=== PATIENT | female | born 1950 | race Caucasian/White ===

== ENCOUNTER 2017-08-23 08:44 | Emergency (ER) | payer MEDICARE, MEDICAID, SELFPAY ==
[2017-08-23 08:45] VITALS: BP 129/81; PULSE 109; RESP 16; TEMP 36.4; O2SAT 95; BMI 30.2
[2017-08-23 08:55] LABS: Bedside Glucose 171 mg/dL (70-110)
--- NOTE | 2017-08-23 08:56 | EKG12_ITS ---
Test Reason : STROKE Blood Pressure : / mmHG Vent. Rate : 101 BPM Atrial Rate : 101 BPM P-R Int : 164 ms QRS Dur : 078 ms QT Int : 362 ms P-R-T Axes : 049 034 074 degrees QTc Int : 469 ms Sinus tachycardia Otherwise normal ECG Confirmed by ELVIN PRAJAPATI ([id number]), research editor BETHANY MOSES ([id number] on 08/25/2017 2:24:03 PM Referred By: BOOGIE Confirmed By:ELVIN PRAJAPATI
--- NOTE | 2017-08-23 08:56 | RAD_ITS ---
STUDY: X-RAY CHEST REASON FOR EXAM: Female, 67 years old. NEURO SYMPTOMS; H/O CVA ASTHMA TECHNIQUE: Single AP portable view of the chest. COMPARISON: July 20, 2011 FINDINGS: There is bibasilar mild atelectasis. There is no demonstrated pleural abnormality. Heart is smaller with borderline cardiomegaly. Normal mediastinum and timothy. Normal visualized pulmonary arteries. There is atherosclerotic tortuosity of the aortic arch and descending thoracic aorta. Normal visualized thoracic spine. Normal visualized ribs, clavicles, and shoulders. There is no demonstrated abnormality of the visualized soft tissue structures of the upper abdomen. RAD/Chest 1 View (Portable) IMPRESSION: There is bibasilar mild atelectasis. Heart is smaller with borderline cardiomegaly. Electronically Signed: Viv Beck MD at 10:37 EDT , Service support ,
[2017-08-23 09:19] LABS: Absolute Lymphocyte Count 1.13 X10^3/ul (0.83-4.51); Absolute Neutrophil Count 6.2 X10^3/uL (2.0-7.7); Basophil# 0.01 X10^3/uL; Basophil% 0.1 % (0-1); Eosinophil# 0.03 X10^3/uL; Eosinophils% 0.4 % (0-5); Hematocrit 43.5 % (37-47); Hemoglobin 14.4 g/dl (12.0-15.0); Lymphocyte # 1.13 X10^3/ul (4.0); Lymphocyte % 14.6 % (19-41); Mean Corp Hgb Conc 33.1 g/gl (32-36); Mean Corpuscular Hgb 31.5 pg (27.0-32.0); Mean Corpuscular Volume 95.2 fL (81-99); Mean Platelet Vol. 9.7 fl (6.2-12.0); Monocyte# 0.39 X10^3/uL; Neutrophil # 6.18 X10^3/uL (2.7-7.7); Neutrophil % 79.8 % (47-70); POSITIVE COUNT NO; POSITIVE DIFFERENTIAL NO; POSITIVE MORPHOLOGY NO; Platelet Count 171 K/mm3 (150-450); RBC Distribution Width SD 44.1 fl (35.1-43.9); Red Blood Count 4.57 M/mm3 (4.2-5.4); White Blood Count 7.8 K/mm3 (4.4-11.0)
[2017-08-23 09:22] LABS: Partial Thromboplast Time 26.2 Seconds (24.1-36.2); Prothrombin Time (Protime)PT. 12.9 SECONDS (11.7-14.9)
[2017-08-23 09:24] LABS: ALB/GLOB Ratio 0.9 RATIO (0.9-2.4); AST(SGOT) 13 U/L (15-37); Alanine Aminotransfer ALT/SGPT 39 U/L (13-56); Albumin, Serum 3.4 g/dL (3.2-5.0); Alkaline Phosphatase 84 U/L (45-117); Anion Gap 8 (5-15); BUN 12 mg/dL (7-18); BUN/Creat Ratio 15.4 RATIO (10-20); Calcium,Total 8.6 mg/dL (8.5-10.1); Chloride 103 mmol/L (98-107); Creatinine, Serum 0.78 mg/dL (0.55-1.02); EST Glomerular Filtration Rate 79 mL/min (>60); Est Glom Filt Rate - Afr Amer 95 mL/min (>60); Estimated Creatinine Clearance 51.81 ml/min; Globulin 3.9 g/dL (2.2-4.2); Glucose 171 mg/dL (74-106); Potassium 3.9 mmol/L (3.5-5.1); Protein, Total 7.3 g/dL (6.4-8.2); Sodium Level 140 mmol/L (136-145)
--- NOTE | 2017-08-23 09:37 | ED.RN ---
lactic acid 2.0. dr rico
--- NOTE | 2017-08-23 09:39 | ED.VISSUMM ---
- ER Visit Summary Date of Service: 08/23/17 Chief Complaint: Weakness and cough History of Present Illness: The patient is a 67 F presenting for the shelter for evaluation secondary to weakness and cough. Apparently the patient is admitted to a shelter secondary to prior history of schizophrenia. Patient was noted to not go to breakfast this morning, and when staff saw her they reported that she potentially was dragging her right foot. When questioned, the patient states that she does not feel that the right side is weak, and she has a prior history of stroke with weakness to the right side. Patient however complains that she has been having significant cough shortness of breath. She also endorses that she has been having some nausea and vomiting. She denies any presence of fevers. She states the cough is nonproductive. Patient denies any visual changes. She does have underlying documented speech difficulty. Physical Examination: Vital signs are notable for heart rate of 109. Well-nourished female no acute distress. Moist mucous membranes. No JVD. Heart was regular and tachycardic with a 2 out of 6 systolic murmur noted. Lung sounds showed evidence of rhonchi in the left lung anand. Abdomen was soft and nontender. Peripheral pulses 2+?4. Skin was normal color. NIH stroke scale showed no lateralizing weakness, but did show the patient to have some mild dysarthria which is baseline, therefore NIH stroke scale is 1. Test Results: EKG shows sinus tachycardia with a rate of 100 and [address] segments normal T waves no evidence of acute ischemia or arrhythmia. CBC unremarkable, lactic acid mildly elevated at 2. Chest x-ray shows atelectasis. CT brain shows a spontaneous intraparenchymal hemorrhage in the left thalamic region without any evidence of midline shift Emergency Department Course and Treatment: Patient presented secondary to a cough and some mild weakness. Patient's workup is noted as above, and ended up showing a intraparenchymal hemorrhage. Multiple repeat evaluation shows the patient to continue to have normal mental status. I do believe the patient requires transfer to a higher level of care with neurosurgical capabilities. Patient's air brake mechanic recommended transfer to [facility]. Patient does not have hypertension and does not require aggressive blood pressure management at this point. The area of the bleed is not concerning for aneurysmal hemorrhage. Patient will be transferred to [facility] for further monitoring and treatment. Disposition: Transfer Impression: 1. Left-sided thalamic intraparenchymal hemorrhage Critical care time 45 minutes This note was generated with [employer] dictation software. It may contain incorrect words, spelling, and punctuation that were not noted in review of the chart prior to signing ED Disposition - Plan for ED Patient: Chief Complaint: Neuro S/Sx Referrals: Dex Emery MD [Primary Care Provider] -
--- NOTE | 2017-08-23 09:42 | ED.DCSUM_ITS ---
- ER Visit Summary Date of Service: 08/23/17 Chief Complaint: Weakness and cough History of Present Illness: The patient is a 67 F [facility] to [facility] and cough. [facility] to prior history of schizophrenia. Patient was noted to not go to breakfast this morning, and when staff saw her they reported that she potentially was dragging her right foot. When questioned , the patient states that she does not feel that the right side is weak, and she has a prior history of stroke with weakness to the right side. Patient however complains that she has been having significant cough shortness of breath. She also endorses that she has been having some nausea and vomiting. She denies any presence of fevers. She states the cough is nonproductive. Patient denies any visual changes. She does have underlying documented speech difficulty. Physical Examination: Vital signs are notable for heart rate of 109. Well- nourished female no acute distress. Moist mucous membranes. No JVD. Heart was regular and tachycardic with a 2 out of 6 systolic murmur noted. Lung sounds showed evidence of rhonchi in the left lung anand. Abdomen was soft and nontender. Peripheral pulses 2+?4. Skin was normal color. NIH stroke scale showed no lateralizing weakness, but did show the patient to have some mild dysarthria which is baseline, therefore NIH stroke scale is 1. Test Results: EKG shows sinus tachycardia with a rate of 100 and [address] segments normal T waves no evidence of acute ischemia or arrhythmia. CBC unremarkable, lactic acid mildly elevated at 2. Chest x-ray shows atelectasis. CT brain shows a spontaneous intraparenchymal hemorrhage in the left thalamic region without any evidence of midline shift Emergency Department Course and Treatment: Patient presented secondary to a cough and some mild weakness. Patient's workup is noted as above, and ended up showing a intraparenchymal hemorrhage. Multiple repeat evaluation shows the patient to continue to have normal mental status. I do believe the patient requires transfer to a higher level of care with neurosurgical capabilities. Patient's bicycle ii assembler recommended transfer to [facility]. Patient does not have hypertension and does not require aggressive blood pressure management at this point. The area of the bleed is not concerning for aneurysmal hemorrhage. Patient will be transferred to [facility] for further monitoring and treatment. Disposition: Transfer Impression: 1. Left-sided thalamic intraparenchymal hemorrhage Critical care time 45 minutes This note was generated with [employer] dictation software. It may contain incorrect words, spelling, and punctuation that were not noted in review of the chart prior to signing ED Disposition - Plan for ED Patient: Chief Complaint: Neuro S/Sx Referrals: Dex Emery MD [Primary Care Provider] -
--- NOTE | 2017-08-23 09:45 | CT_ITS ---
STUDY: CT BRAIN WITHOUT CONTRAST REASON FOR EXAM: Female, 67 years old. WEAKNESS RT ARM, RT FOOT DRAGGING STARTED TODAY, LAST SEEN NORMAL BY CONSTRUCTION ADMINISTRATIVE ASSISTANT YESTERDAY RADIATION DOSAGE (If Supplied By Facility): CTDIvol = ( 44.99 ) mGy, DLP = ( 745.49 ) mGycm TECHNIQUE: Transaxial CT imaging of the brain was performed without administration of intravenous contrast material. Individualized dose optimization techniques were used for this CT. COMPARISON: July 20, 2011 CT head report only FINDINGS: Normal soft tissue structures. Normal calvarium. Normal size ventricles and extra-axial spaces for the patient's age. There are areas of decreased attenuation within the white matter tracts of the supratentorial brain, consistent with microvascular disease changes. There is a 1.4 cm acute hematoma of the left thalamus. No mass effect or midline shift. There are calcifications of the bilateral basal ganglia. Normal brainstem. Normal cerebellum. Normal visualized paranasal sinuses. CT/Brain/Head without Contrast IMPRESSION: There is a 1.4 cm acute hematoma of the left thalamus. This could represent an acute hemorrhagic infarct. N.B. : The above information has been verbally conveyed by Viv Beck MD to Nate Ponce, Referring Physician, on 08/23/2017 10:07:11 (ET). Electronically Signed: Viv Beck MD at 10:08 EDT , Service support , N.B. : The above information has been verbally conveyed by Viv Beck MD to Nate Ponce, Referring Physician, on 08/23/2017 10:07:11 (ET).
[2017-08-23 09:56] VITALS: BP 128/85; PULSE 101; RESP 16; O2SAT 96
[2017-08-23] MEDS: 0.9% Normal Saline 1,000 ML 999 ML IV (09:57)
[2017-08-23 11:44] VITALS: BP 145/85; PULSE 104; O2SAT 96
[2017-08-23 12:03] VITALS: BP 136/87; PULSE 101; O2SAT 96
--- NOTE | 2017-08-23 12:35 | ED.RN ---
report given to Oralia ROBERSON. transfer expected to arrive in 1 hr
[2017-08-23 13:03] LABS: Reflex Lactate? Y
== END 2017-08-23 13:32 | disposition short-term general hospital (02) ==
PROVIDERS: Emergency Provider Emergency Medicine; Family Provider Family Medicine; PCP Family Medicine
DX: I61.8 Other nontraumatic intracerebral hemorrhage (principal); G83.11 Monoplegia of lower limb affecting right dominant side; I69.14 Monoplegia of lower limb following nontraumatic intracerebral hemorrhage; K21.9 Gastro-esophageal reflux disease without esophagitis; F20.9 Schizophrenia, unspecified; Z79.82 Long term (current) use of aspirin; Z79.899 Other long term (current) drug therapy
CPT/HCPCS: 70450; 71045; 80053; 82962; 83605; 85025; 85610; 85730; 87040; 93005; 96360; 99285; J7030; A4216

== ENCOUNTER → 2019-01-12 05:00 | Outpatient (REF) | payer MEDICARE, MEDICAID, SELFPAY ==
[2019-01-12 07:48] LABS: Hemoglobin 14.3 g/dL (12.0-15.0); Mean Corp Hgb Conc 32.5 g/dL (32-36); Mean Corpuscular Hgb 31.6 pg (27.0-32.0); Mean Corpuscular Volume 97.3 fL (81-99); Mean Platelet Vol. 10.3 fl (6.2-12.0); Platelet Count 182 K/mm3 (150-450); RBC Distribution Width CV 12.9 % (11.6-14.6); RBC Distribution Width SD 46.4 fl (35.1-43.9); Red Blood Count 4.52 M/mm3 (4.2-5.4); White Blood Count 6.4 K/mm3 (4.4-11.0)
[2019-01-12 08:20] LABS: Anion Gap 8 (5-15); BUN 13 mg/dL (7-18); BUN/Creat Ratio 20.2 RATIO (10-20); Calcium,Total 8.7 mg/dL (8.5-10.1); Chloride 109 mmol/L (98-107); Creatinine, Serum 0.64 mg/dL (0.55-1.02); EST Glomerular Filtration Rate 98 mL/min (>60); Est Glom Filt Rate - Afr Amer 118 mL/min (>60); Glucose 102 mg/dL (74-106); Potassium 4.3 mmol/L (3.5-5.1); Sodium Level 143 mmol/L (136-145)
== END ==
LOC: OLS.WCC 05:00
PROVIDERS: Visit Provider Family Medicine
DX: Z79.899 Other long term (current) drug therapy (principal)
CPT/HCPCS: 36415; 80048; 85027

== ENCOUNTER → 2019-05-10 12:35 | Outpatient (CLI) | payer MEDICARE, MEDICAID, SELFPAY ==
--- NOTE | 2019-05-10 12:39 | RAD_ITS ---
STUDY: SWALLOWING STUDY REASON FOR EXAM: Female, 69 years old. DYSPHAGIA, 152 SEC FLUORO, 14.32 MGY, 2501 IMAGES TECHNIQUE: The examination was performed with Speech Pathology in attendance. Under fluoroscopic observation, the patient ingested thin barium, thick barium, barium pudding, and barium coated cracker. FLUOROSCOPY TIME: 3:52 minutes/seconds RADIOLOGIST INVOLVEMENT: Radiologist was present and providing direct supervision. COMPARISON: October 06, 2016. FINDINGS: Fluoroscopy services provided for clinical procedure. Please refer to operating physician''s procedure note for additional detail. RAD/Swallowing Function w/Video IMPRESSION: Fluoroscopy services provided for clinical procedure. Please refer to operating physician''s procedure note for additional detail. The swallow study findings were discussed with the patient by the speech pathologist at the conclusion of the examination. Please see speech pathology report for more information and recommendations. Electronically Signed: Phillip Leonardo MD at 7:39 EST , Service support ,
--- NOTE | 2019-05-10 13:00 | SP.MBSS_ITS ---
PRIMARY / SECONDARY DIAGNOSIS: Personal history of Transient Ischemic Attack (TIA) Z86.73 / Dysphagia REFERRING PHYSICIAN: Dr. EMY Silver CURRENT DIET: Mechanical Soft/Thin liquid w/ all sips via Provale 10cc cup, close supervision, verbal cues for slow rate, small bites, liquid wash DENTITION: present MENTAL STATUS: Limited ability to follow commands for assessment of strategies under fluoroscopy RESPIRATORY STATUS: oxygenating on room air w/ no report of respiratory symptoms from PATIENT TRANSPORTER accompanying the patient to this study PREVIOUS MODIFIED BARIUM SWALLOW STUDY: * Completed 07/25/2014 by Kalee Forbes M.A., CCC-DINING ROOM SERVER: severe oropharyngeal and pharyngeal dysphagia; silent aspiration of thin and nectar thickened liquids, DNT honey thickened liquids, aspiration w/ pudding (cough, not effective to eject). Use of a chin tuck was effective to completely eliminate penetration/aspiration; regular texture/thin liquid diet recommended w/ use of a chin tuck posture during deglutition; outpatient tx recommended targeting pitch jumps, effortful swallow, tongue pose, and oral sucking exercises * Completed 10/06/2016 by Haritha Blackman M.A., CCC-DINING ROOM SERVER: moderate oropharyngeal dysphagia; mechanical soft textures/thin liquids recommended w/ small bites, small sips, slow rate of intake, chin tuck posture when swallows w/ all bites/sips, distant supervision w/ verbal cues recommended to ensure consistent and accurate [place] of compensatory strategies w/ recommendation for continued skilled ST intervention targeting dysphagia REASON FOR REFERRAL: Further assessment of swallow function under fluoroscopy recommended d/t impulsivity and frequent coughing w/ PO intake. PATIENT TRANSPORTER accompanying the patient reports the patient to utilize a rapid rate of intake w/ need for 1:1 supervision & verbal cues to take small bites/sips and eat slowly. MEDICAL HISTORY: Asthma; Arthritis; CVA; Dementia; Mild Cognitive Impairment; Paranoid Schizophrenia; Major Depressive Disorder, recurrent, severe w/ psychotic symptoms; Gastroesophageal Reflux Disease without Esophagitis; Oropharyngeal Dysphagia; STUDY FINDINGS: Patient participated in a Modified Barium Swallow (MBS) study on 05/10/2019. Dr. Gallagher was the radiologist present for this evaluation. This study was recorded in the lateral view and images were sent to PACs for storage. The following consistencies were presented to this patient for analysis of oropharyngeal swallow function: thin liquid, nectar thickened liquid, pudding & ? of a Mimi Doone Shortbread Cookie coated in barium. Results of the MBS are as follows: PENETRATION / ASPIRATION SCALE ([place]): 1 = does not enter airway 2 = enters airway/above vocal folds/ejected 3 = enters airway/above vocal folds/not ejected 4 = enters airway/contacts vocal folds/ejected 5 = enters airway/contacts vocal folds/not ejected 6 = enters airway/below vocal folds/ejected 7 = enters airway/below vocal folds/not ejected despite effort 8 = enters airway/below vocal folds/no effort PENETRATION / ASPIRATION SCALE (SCORE): 1. Thin liquid via Provale 10cc cup: 7 * Aspiration d/t poor oral control w/ bolus spillage into the pharynx w/ immediate penetration/aspiration before swallow onset; strong cough response to aspirate 2. Thin liquid via Provale 10cc cup: 1 3. Thin liquid via Provale 10cc cup: 1 4. Thin liquid via Provale 10cc cup: swallow not captured under fluoroscopy d/t Radiologist/ rotational moulding operator error 5. Thin liquid via sip from regular cup: 4 6. [place] thickened liquid via sip from regular cup: 1 7. [place] thickened liquid via sip from regular cup: 1 8. Puddin 9. Puddin 10. Cookie: 1 11. Thin liquid via Provale 10cc cup: 1 w/ initial swallow; 3 w/ penetration of pharyngeal residue post deglutition 12. Thin liquid via Provale 10cc cup: 2 13. Thin liquid via Provale 10cc cup: 1 14. Thin liquid via Provale 10cc cup: 2 15. Thin liquid via sip from regular cup: 6 16. Thin liquid via sip from regular cup: 5 IMPRESSION ORAL PHASE CHARACTERIZED BY: * LABIAL SEAL: no labial escape * TONGUE CONTROL DURING BOLUS MANIPULATION: posterior escape of greater than half of bolus * BOLUS PREPARATION / MASTICATION: disorganized chewing/mashing with solid pieces of bolus unchewed * BOLUS TRANSPORT / LINGUAL MOTION: repetitive/disorganized tongue motion * ORAL RESIDUE: residue collection on oral structures (tongue base) PHARYNGEAL PHASE CHARACTERIZED BY: * INITIATION OF PHARYNGEAL SWALLOW: bolus head in pyriforms at first hyoid excursion * SOFT PALATE ELEVATION: no bolus between soft palate and pharyngeal wall * LARYNGEAL ELEVATION: minimal superior movement of thyroid cartilage/minimal approximation of arytenoids cartilage to epiglottic petiole * ANTERIOR HYOID EXCURSION: partial anterior movement * EPIGLOTTIC MOVEMENT: partial epiglottic inversion * LARYNGEAL VESTIBULE CLOSURE AT HEIGHT OF SWALLOW: incomplete laryngeal vestibule closure with narrow column of air/contrast in laryngeal vestibule * PHARYNGEAL STRIPPING WAVE: pharyngeal stripping wave present / diminished * PHARYNGOESOPHAGEAL SEGMENT OPENING: partial distension and partial duration; partial obstruction of flow * TONGUE BASE RETRACTION: narrow column of contrast between tongue base and posterior pharyngeal wall * PHARYNGEAL RESIDUE: collection of residue within or on pharyngeal structures ESOPHAGEAL PHASE CHARACTERIZED BY: * ESOPHAGEAL BOLUS CLEARANCE IN THE UPRIGHT POSITION: esophageal retention with retrograde flow through PES into pharynx EFFECTS OF TREATMENT STRATEGIES ATTEMPTED: * Chin tuck posture = unable to follow commands to execute * 3 second prep (oral hold prior to swallow onset) = unable to follow command to execute * Cued expectoration = delayed cough which was ineffective to clear laryngeal vestibule penetration * Double swallow = moderately effective in reducing pharyngeal residue post deglutition * Reduced bolus size = effective INTERPRETATION OF RESULTS Patient presents with moderate oropharyngeal dysphagia (R13.12). The oral phase is primarily marked by a mild mastication inefficiency and severely impaired lingual control resulting in poor oral bolus containment w/ spillage into the pharynx prior to swallow onset. Disorganized oral prep noted w/ repetitive lingual motion utilized to facilitate A-P bolus transit. Oral phase swallow onset delay (2-3 seconds in length) resulting in all liquids spilling and pooling w/in the pyriform sinuses prior to swallow onset. The pharyngeal phase is primarily marked by delayed pharyngeal swallow onset timing w/ liquids pooling in the pyriform sinuses prior to swallow onset w/ liquids penetrating into the laryngeal vestibule from the pyriforms, especially of note w/ larger volume thin liquid boluses. Reduced closure of the airway during deglutition attributed to reduced hyolaryngeal excursion. Reduced pharyngeal motility attributed to reduced tongue base retraction and reduced posterior pharyngeal stripping wave action resulting in pharyngeal retention of contrast post deglutition within the valleculae (mild) and pyriforms (moderate) contributing to penetration of pharyngeal residue after the initial swallow. The esophageal phase is marked by esophageal retention with retrograde flow through PES into pharynx. Retrograde flow did not contribute to laryngeal vestibule penetration/aspiration during this study, but places the patient at increased risk for aspiration, especially w/ poor meal hygiene. Compensatory postures/strategies were trialed under fluoroscopy, but the patient was unable to comprehend and follow instruction w/ no attempt to execute any strategies recommended. During the previous study completed by this DINING ROOM SERVER, the patient was able to follow some commands for execution of strategies, suggesting a functional cognitive decline since prior study which is likely contributing to exacerbation of existing oropharyngeal dysphagia. Overt aspiration occurred 1x only w/ an immediate and strong cough response to aspiration. Aspiration occurred w/ very first thin liquid bolus provided via Provale cup d/t lack of oral containment w/ liquid immediately spilling into the laryngeal vestibule/trachea. Although oral control remained impaired t/o remainder of the study, no additional aspiration was evident. RECOMMENDATIONS * DIET RECOMMENDATIONS: mechanical soft textures/thin liquids * COMPENSATORY STRATEGIES RECOMMENDED: Direct 1:1 supervision w/ all PO intake, use of Provale 10cc cup for small sips, one sip at a time, cue for double swallow as able to reduce pharyngeal residue retention, seated upright at 90 degrees during PO intake, remain upright for 30-60 minutes post meal (GERD precaution recommended d/t visible retrograde bolus flow through PES into pharynx during MBS), medications while w/ purees. * NEED FOR SKILLED SPEECH-LANGUAGE INTERVENTION TARGETING DYSPHAGIA: This patient requires intensive skilled speech-language intervention targeting continued diet texture management w/ training and implementation of recommended compensatory strategies. The patient demonstrated significant difficulty following all direction presented verbally and visually, one step at a time, with suspected limited ability to complete oropharyngeal swallow therapy to improve oral control and swallow onset timing. As the patient does demonstrate strong overt coughing in response to aspiration and caregivers reports that there have been no respiratory status changes, it is reasonable to believe that the patient?s cough is effective to eject aspirate and sufficiently protect the airway. Recommend to continue w/ thin liquid intake, small sips, one sip at a time w/ Provale cup, despite coughing, as this will yield the highest quality of life and intake. If changes in pulmonary status are evident, liquid consistency modification should be considered. * ADDITIONAL COMMENTS/RECOMMENDATIONS: Results and recommendations were discussed with the patient and accompanying PATIENT TRANSPORTER immediately following MBS completion, with the patient verbalizing agreement with all recommendations and education provided, although comprehension is suspected to be limited w/ ongoing reinforcement likely to be required. IMAGE COUNT: [id number] Haritha Blackman M.A., [facility]-DINING ROOM SERVER [phone]
== END ==
PROVIDERS: Family Provider Family Medicine; PCP Family Medicine; Referring Provider Family Medicine; Visit Provider Family Medicine
DX: Z86.73 Personal history of transient ischemic attack (TIA), and cerebral infarction without residual deficits (principal)
CPT/HCPCS: 74230; 92611

== ENCOUNTER → 2019-07-12 05:00 | Outpatient (REF) | payer MEDICARE, MEDICAID, SELFPAY ==
[2019-07-12 09:16] LABS: Hematocrit 44.6 % (37-47); Hemoglobin 14.2 g/dL (12.0-15.0); Mean Corp Hgb Conc 31.8 g/dL (32-36); Mean Corpuscular Hgb 30.5 pg (27.0-32.0); Mean Corpuscular Volume 95.7 fL (81-99); Mean Platelet Vol. 10.4 fl (6.2-12.0); Platelet Count 206 K/mm3 (150-450); RBC Distribution Width CV 12.9 % (11.6-14.6); RBC Distribution Width SD 45.1 fl (35.1-43.9); Red Blood Count 4.66 M/mm3 (4.2-5.4); White Blood Count 6.1 K/mm3 (4.4-11.0)
[2019-07-12 09:33] LABS: Anion Gap 4 (5-15); BUN 9 mg/dL (7-18); BUN/Creat Ratio 12.7 RATIO (10-20); Calcium,Total 8.8 mg/dL (8.5-10.1); Chloride 104 mmol/L (98-107); Cholesterol 215 mg/dL (200); Creatinine, Serum 0.71 mg/dL (0.55-1.02); EST Glomerular Filtration Rate 87 mL/min (>60); Est Glom Filt Rate - Afr Amer 106 mL/min (>60); Glucose 124 mg/dL (74-106); High Density Lipoprotein 55 mg/dL; Sodium Level 139 mmol/L (136-145); Triglycerides 183 mg/dL; Very Low Density Lipoprotein 37 mg/dL (5-40)
== END ==
LOC: OLS.WCC 05:00
PROVIDERS: PCP Family Medicine; Visit Provider Family Medicine
DX: E55.9 Vitamin D deficiency, unspecified (principal); Z79.899 Other long term (current) drug therapy
CPT/HCPCS: 36415; 80048; 80061; 82306; 85027

== ENCOUNTER → 2020-01-02 14:05 | Outpatient (REF) | payer MEDICARE, MEDICAID, SELFPAY | LOC: OLS.WCC 14:05 | PROVIDERS: PCP Family Medicine; Referring Provider Family Medicine; Visit Provider Family Medicine | DX: Z20.828 Contact with and (suspected) exposure to other viral communicable diseases (principal) | CPT/HCPCS: 87635; U0003 ==

== ENCOUNTER → 2020-02-11 08:00 | Outpatient (REF) | payer MEDICARE, MEDICAID, SELFPAY ==
[2020-02-11 12:06] LABS: Cholesterol 209 mg/dL (200); High Density Lipoprotein 52 mg/dL; Triglycerides 183 mg/dL; Very Low Density Lipoprotein 37 mg/dL (5-40)
[2020-02-13 08:30] LABS: Vitamin D,25 Hydroxy 20.1 ng/mL
== END ==
LOC: OLS.WCC 08:00
PROVIDERS: PCP Family Medicine; Referring Provider Family Medicine; Visit Provider Family Medicine
DX: R53.83 Other fatigue (principal); E55.9 Vitamin D deficiency, unspecified; Z79.899 Other long term (current) drug therapy
CPT/HCPCS: 36415; 80061; 82306

== ENCOUNTER → 2020-08-12 06:29 | Outpatient (REF) | payer MEDICARE, MEDICAID, SELFPAY ==
[2020-08-12 08:14] LABS: Hemoglobin 13.8 g/dL (12.0-15.0); Mean Corp Hgb Conc 32.1 g/dL (32-36); Mean Corpuscular Hgb 31.2 pg (27.0-32.0); Mean Corpuscular Volume 97.3 fL (81-99); Mean Platelet Vol. 10.2 fl (6.2-12.0); Platelet Count 203 K/mm3 (150-450); RBC Distribution Width CV 12.4 % (11.6-14.6); RBC Distribution Width SD 44.7 fl (35.1-43.9); Red Blood Count 4.42 M/mm3 (4.2-5.4); White Blood Count 5.9 K/mm3 (4.4-11.0)
[2020-08-12 08:24] LABS: Anion Gap 4 (5-15); BUN 9 mg/dL (7-18); BUN/Creat Ratio 13.6 RATIO (10-20); Calcium,Total 8.7 mg/dL (8.5-10.1); Chloride 106 mmol/L (98-107); Creatinine, Serum 0.66 mg/dL (0.55-1.02); EST Glomerular Filtration Rate 94 mL/min (>60); Est Glom Filt Rate - Afr Amer 113 mL/min (>60); Glucose 101 mg/dL (74-106); Sodium Level 141 mmol/L (136-145)
[2020-08-12 08:41] LABS: Vitamin D,25 Hydroxy 26.8 ng/mL
== END ==
LOC: OLS.WCC 06:29
PROVIDERS: PCP Family Medicine; Referring Provider Family Medicine; Visit Provider Family Medicine
DX: Z79.899 Other long term (current) drug therapy (principal); E55.9 Vitamin D deficiency, unspecified
CPT/HCPCS: 36415; 80048; 82306; 85027

== ENCOUNTER → 2021-02-10 05:00 | Outpatient (REF) | payer MEDICARE, MEDICAID, SELFPAY ==
[2021-02-10 10:22] LABS: Hematocrit 45.1 % (37-47); Hemoglobin 14.3 g/dL (12.0-15.0); Mean Corp Hgb Conc 31.7 g/dL (32-36); Mean Corpuscular Hgb 30.8 pg (27.0-32.0); Mean Platelet Vol. 10.4 fl (6.2-12.0); Platelet Count 202 K/mm3 (150-450); RBC Distribution Width CV 12.7 % (11.6-14.6); RBC Distribution Width SD 45.4 fl (35.1-43.9); Red Blood Count 4.65 M/mm3 (4.2-5.4); White Blood Count 6.7 K/mm3 (4.4-11.0)
[2021-02-10 10:34] LABS: Vitamin D,25 Hydroxy 36.1 ng/mL
[2021-02-10 10:36] LABS: Anion Gap 7 (5-15); BUN 16 mg/dL (7-18); Calcium,Total 8.9 mg/dL (8.5-10.1); Chloride 106 mmol/L (98-107); Cholesterol 217 mg/dL (200); Creatinine, Serum 0.76 mg/dL (0.55-1.02); EST Glomerular Filtration Rate 80 mL/min (>60); Est Glom Filt Rate - Afr Amer 97 mL/min (>60); Glucose 99 mg/dL (74-106); High Density Lipoprotein 56 mg/dL; Potassium 3.9 mmol/L (3.5-5.1); Sodium Level 142 mmol/L (136-145); Triglycerides 185 mg/dL; Very Low Density Lipoprotein 37 mg/dL (5-40)
== END ==
LOC: OLS.WCC 05:00
PROVIDERS: PCP Family Medicine; Visit Provider Family Medicine
DX: I10 Essential (primary) hypertension (principal); E78.5 Hyperlipidemia, unspecified; E55.9 Vitamin D deficiency, unspecified; Z79.899 Other long term (current) drug therapy
CPT/HCPCS: 36415; 80048; 80061; 82306; 85027

== ENCOUNTER → 2021-06-01 | Outpatient (REF) | payer MEDICARE, MEDICAID, SELFPAY | END | disposition home or self-care (01) | LOC: OLS.WCC 15:37 | PROVIDERS: PCP Family Medicine; Referring Provider Family Medicine; Visit Provider Family Medicine | DX: Z20.822 Contact with and (suspected) exposure to COVID-19 (principal) | CPT/HCPCS: 87635; U0003; U0005 ==

== ENCOUNTER → 2021-08-11 | Outpatient (REF) | payer MEDICARE, MEDICAID, SELFPAY ==
[2021-08-11 10:26] LABS: Hematocrit 42.1 % (37-47); Hemoglobin 13.4 g/dL (12.0-15.0); Mean Corp Hgb Conc 31.8 g/dL (32-36); Mean Corpuscular Hgb 30.6 pg (27.0-32.0); Mean Corpuscular Volume 96.1 fL (81-99); Mean Platelet Vol. 10.3 fl (6.2-12.0); Platelet Count 207 K/mm3 (150-450); RBC Distribution Width CV 12.3 % (11.6-14.6); RBC Distribution Width SD 44.2 fl (35.1-43.9); Red Blood Count 4.38 M/mm3 (4.2-5.4)
[2021-08-11 10:39] LABS: Anion Gap 4 (5-15); BUN 13 mg/dL (7-18); BUN/Creat Ratio 20.9 RATIO (10-20); Calcium,Total 8.4 mg/dL (8.5-10.1); Chloride 105 mmol/L (98-107); Creatinine, Serum 0.62 mg/dL (0.55-1.02); EST Glomerular Filtration Rate 100 mL/min (>60); Est Glom Filt Rate - Afr Amer 122 mL/min (>60); Glucose 105 mg/dL (74-106); Potassium 3.6 mmol/L (3.5-5.1); Sodium Level 140 mmol/L (136-145)
[2021-08-11 10:42] LABS: Vitamin D,25 Hydroxy 39.4 ng/mL
== END | disposition home or self-care (01) ==
LOC: OLS.WCC 05:00
PROVIDERS: PCP Family Medicine; Visit Provider Family Medicine
DX: Z79.899 Other long term (current) drug therapy (principal)
CPT/HCPCS: 36415; 80048; 82306; 85027

== ENCOUNTER → 2021-12-02 | Outpatient (REF) | payer MEDICARE, MEDICAID, SELFPAY | LOC: OLS.WCC 22:44 | PROVIDERS: PCP Family Medicine; Referring Provider Family Medicine; Visit Provider Family Medicine | DX: R30.0 Dysuria (principal); R41.0 Disorientation, unspecified | CPT/HCPCS: 87077; 87086; 87088; 87186 ==

== ENCOUNTER → 2022-02-11 | Outpatient (REF) | payer MEDICARE, MEDICAID, SELFPAY ==
[2022-02-11 08:47] LABS: Hematocrit 41.6 % (37-47); Mean Corp Hgb Conc 31.3 g/dL (32-36); Mean Corpuscular Hgb 30.7 pg (27.0-32.0); Mean Corpuscular Volume 98.3 fL (81-99); Mean Platelet Vol. 10.1 fl (6.2-12.0); Platelet Count 202 K/mm3 (150-450); RBC Distribution Width CV 12.8 % (11.6-14.6); RBC Distribution Width SD 46.1 fl (35.1-43.9); Red Blood Count 4.23 M/mm3 (4.2-5.4); White Blood Count 6.3 K/mm3 (4.4-11.0)
[2022-02-11 09:04] LABS: Anion Gap 5 (5-15); BUN 14 mg/dL (7-18); Calcium,Total 8.9 mg/dL (8.5-10.1); Chloride 107 mmol/L (98-107); Cholesterol 211 mg/dL (200); EST Glomerular Filtration Rate 88 mL/min (>60); Est Glom Filt Rate - Afr Amer 106 mL/min (>60); Glucose 95 mg/dL (74-106); High Density Lipoprotein 53 mg/dL; Potassium 4.1 mmol/L (3.5-5.1); Sodium Level 142 mmol/L (136-145); Triglycerides 162 mg/dL; Very Low Density Lipoprotein 32 mg/dL (5-40)
[2022-02-11 09:06] LABS: Vitamin D,25 Hydroxy 44.5 ng/mL
== END ==
LOC: OLS.WCC 05:00
PROVIDERS: PCP Family Medicine; Visit Provider Family Medicine
DX: F03.90 Unspecified dementia, unspecified severity, without behavioral disturbance, psychotic disturbance, mood disturbance, and anxiety (principal); E55.9 Vitamin D deficiency, unspecified; Z79.899 Other long term (current) drug therapy
CPT/HCPCS: 36415; 80048; 80061; 82306; 85027

== ENCOUNTER → 2022-04-06 | Outpatient (REF) | payer MEDICARE, MEDICAID, SELFPAY ==
[2022-04-06 08:37] LABS: Hematocrit 39.9 % (37-47); Hemoglobin 12.5 g/dL (12.0-15.0); Mean Corp Hgb Conc 31.3 g/dL (32-36); Mean Corpuscular Hgb 30.9 pg (27.0-32.0); Mean Corpuscular Volume 98.5 fL (81-99); Mean Platelet Vol. 10.3 fl (6.2-12.0); Platelet Count 176 K/mm3 (150-450); RBC Distribution Width CV 12.8 % (11.6-14.6); RBC Distribution Width SD 46.2 fl (35.1-43.9); Red Blood Count 4.05 M/mm3 (4.2-5.4)
[2022-04-06 08:57] LABS: Anion Gap 9 (5-15); BUN 21 mg/dL (7-18); BUN/Creat Ratio 37.5 RATIO (10-20); Calcium,Total 8.3 mg/dL (8.5-10.1); Chloride 107 mmol/L (98-107); Creatinine, Serum 0.56 mg/dL (0.55-1.02); EST Glomerular Filtration Rate 113 mL/min (>60); Est Glom Filt Rate - Afr Amer 137 mL/min (>60); Glucose 96 mg/dL (74-106); Potassium 3.7 mmol/L (3.5-5.1); Sodium Level 142 mmol/L (136-145); Thyroid Stim Hormone (TSH) 1.77 uIU/mL (0.358-3.74)
== END ==
LOC: OLS.WCC 05:00
PROVIDERS: PCP Family Medicine; Visit Provider Family Medicine
DX: F03.90 Unspecified dementia, unspecified severity, without behavioral disturbance, psychotic disturbance, mood disturbance, and anxiety (principal)
CPT/HCPCS: 36415; 80048; 84443; 85027

== ENCOUNTER → 2022-04-16 | Outpatient (CLI) | payer MEDICARE, MEDICAID, SELFPAY ==
--- NOTE | 2022-04-16 15:37 | CT_ITS ---
STUDY: CT BRAIN WITHOUT CONTRAST REASON FOR EXAM: Female, 72 years old. ALTERED MENTAL STATUS -- R/O CVA OR TUMOR. RIGHT SIDED WEAKNESS TECHNIQUE: Transaxial CT imaging of the brain was performed without administration of intravenous contrast material. Individualized dose optimization techniques were used for this CT. COMPARISON: 08.23.17 FINDINGS: Normal calvarium. Normal soft tissues. There is mild cerebral atrophy with widening of the extra-axial spaces and ventricular dilatation. There are areas of decreased attenuation within the white matter tracts of the supratentorial brain, consistent with microvascular disease changes. There are small punctate calcifications of the basal ganglia which are seen in the aging brain as a normal variant. Normal brainstem. Normal cerebellum. There is no intracranial hemorrhage. There are no findings of an acute ischemic infarction. There are calcifications noted in the distal vertebral arteries. There are calcifications noted in the cavernous carotid arteries. This is consistent for atherosclerotic disease. Normal visualized paranasal sinuses. ASPECTS 10 CT/Brain/Head without Contrast IMPRESSION: There are no acute intracranial findings. Electronically Signed: Arian Newell MD at 16:58 EST ,
== END | disposition home or self-care (01) ==
LOC: CT 15:36
PROVIDERS: PCP Family Medicine; Visit Provider Family Medicine
DX: R41.82 Altered mental status, unspecified (principal); R53.1 Weakness; R05.9 Cough, unspecified
CPT/HCPCS: 70450

== ENCOUNTER → 2022-04-20 | Outpatient (CLI) | payer MEDICARE, MEDICAID, SELFPAY ==
--- NOTE | 2022-04-20 14:50 | ST.MBS ---
Modified Barium Swallow - Patient Information Study Date: 04/20/22 Study Time: 14:00 Direct Billable Minutes: 120 Total Minutes procedure & reportin Diagnosis: Dysphagia, unspecified (R13.10) Referring Physician: Srinivasan Silver Reason for Referral: Objectively assess swallow function, assess risk for aspiration, and determine recommendations for least restrictive diet textures and compensatory strategies to improve safety of swallow. Medical History: Wendy Gonzales is a 72-year-old female with PMH including cognitive communication deficit, major depressive disorder, schizophrenia, unspecified dementia, gastroesophageal reflux disease w/o esophagitis, and oropharyngeal phase dysphagia. Per her treating OFFICE SUPPORT, Aiyana, the patient has had a recent decline in swallow function. She was originally on mechanical soft textures / thin liquids in a Provale bolus control cup (10cc). She required bolus control cup and supervision due to impulsivity. She was recently downgraded to puree textures / moderately thick liquids. She typically coughs with liquids, but there are times she doesn?t notice oral residuals and has nearly choked. She was referred for MBSS to determine least restrictive diet textures and compensatory strategies to decrease risk for aspiration. RN, Vito, accompanied the patient to the study and provided additional history. R sided weakness, decreased speech abilities, and increased difficulty swallowing onset ~3 weeks ago. Pt is suspected for CVA, but does not have a formal diagnosis. Current Diet Ordered: Puree textures / Moderately thick liquids Mental Status: Impaired - Difficulty following commands Respiratory Status: Oxygenating on Room Air - Penetration-Aspiration Scale Penetration-Aspiration Scale: OBJECTIVE ASSESSMENT OF SWALLOW FUNCTION (QUANTITATIVE ? PER TRIAL): PENETRATION / ASPIRATION SCALE (BARAHONA): 1 = does not enter airway 2 = enters airway/above vocal folds/ejected 3 = enters airway/above vocal folds/not ejected 4 = enters airway/contacts vocal folds/ejected 5 = enters airway/contacts vocal folds/not ejected 6 = enters airway/below vocal folds/ejected 7 = enters airway/below vocal folds/not ejected despite effort 8 = enters airway/below vocal folds/no effort VIDEOFLOROSCOPIC SCALE SCORE (BARAHONA): Grade I = aspiration of material that has penetrated into the laryngeal vestibule, intact cough reflex Grade II = aspiration < 10 % of the bolus, intact cough reflex Grade III = aspiration of < 10 % of the bolus, reduced cough reflex or aspiration of > 10 % of the bolus, intact cough reflex Grade IV = aspiration of > 10 % of the bolus, reduced cough reflex - Penetration-Aspiration Scale Score Thin Liquid via teaspoon Result: 5= enters airways/contacts vocal folds/not ejected Thin Liquid via teaspoon Trial 2 Result: 3= enters airways/above vocal folds/not ejected Thin Liquid via 10cc cup sip Result: 5= enters airways/contacts vocal folds/not ejected Reasnor Thick Liquid via teaspoon Result: 3= enters airways/above vocal folds/not ejected Honey Thick Liquid via teaspoon Result: 1= does not enter airway - post prandial penetration to the vocal folds - reflexive cough did not fully clear the penetrated barium Honey Thick Liquid via teaspoon Double swallow Result: 7= enters airways/below vocal folds/not ejected despite effort Pudding via teaspoon Result: 2= enter airway/above vocal folds/ejected 1/4 Cookie Result: 3= enters airways/above vocal folds/not ejected Pudding via teaspoon Double swallow Result: 2= enter airway/above vocal folds/ejected Pudding via teaspoon Double swallow Trial 2 Result: 2= enter airway/above vocal folds/ejected Thin Liquid via 10cc cup sip cued Cough and re-swallow Result: 8= enters airway/below vocal folds/no effort Thin Liquid via 10cc cup sip Chin tuck Result: 5= enters airways/contacts vocal folds/not ejected - Pt unable to properly execute chin tuck strategy. Thin Liquid via 10cc cup sip Head rotation right Result: 8= enters airway/below vocal folds/no effort - Pt unable to properly execute head rotation strategy. Reasnor Thick Liquid via teaspoon Double swallow Result: 2= enter airway/above vocal folds/ejected Reasnor Thick Liquid via teaspoon Double swallow Trial 2 Result: 1= does not enter airway - Oral Phase Labial Seal: Interlabial escape, no progression to anterior lip Tongue Control During Bolus Hold: Posterior escape of greater than half of bolus Bolus Preparation/Mastication: Slow prolonged chewing/mashing with complete recollection - bolus appeared fully chewed; however, posterior loss to the posterior surface of the epiglottis for cookie Bolus Transport/Lingual Motion: Delayed initiation of tongue motion Oral Residue: Residue collection on oral structures - Pharyngeal Phase Initiation of Pharyngeal Swallow: Bolus head in pyriforms Soft Palate Elevation: No bolus between soft palate and pharyngeal wall Laryngeal Elevation: Partial superior movement thyroid cart/partial apprx aryt-epig petiole Anterior Hyoid Excursion: Partial anterior movement Epiglottic Movement: Partial inversion Laryngeal Vestibule Closure at Height of Swallow: Incomplete; narrow column of air/contrast in laryngeal vestibule Pharyngeal Stripping Wave: Present - complete Pharyngoesophageal Segment Opening: Parital distension and partial duration; parital obstruction of flow Tongue Base Retraction: Narrow column of contrast between tongue base & post. pharyngeal wall Pharyngeal Residue: Collection of residue within or on pharyngeal structures - Esophageal Phase Esophageal Clearance: Complete clearance - Diagnosis/Impression Diagnosis: Moderate-severe oropharyngeal phase dysphagia (R13.12) Impression: The oral phase is primarily marked by... -Decreased bolus control with >1/2 of various boluses spilling posteriorly to the pyriforms prior to swallow onset observed with thin liquids and pudding. The patient demonstrated premature posterior loss of thin liquids, nectar thick liquids, and pudding coating for cookie to the laryngeal vestibule prior to swallow onset. -Delayed tongue motion for A-P transport. -Prolonged mastication of cookie; however, poor bolus control with posterior loss to the posterior surface of the epiglottis. -Mild oral residue after the swallow with cookie, which mostly cleared with independent use of a second swallow. The pharyngeal phase is primarily marked by... -Decreased airway closure during the swallow due to decreased anterior hyoid excursion, partial epiglottic inversion, and decreased laryngeal elevation. -Mildly decreased tongue base retraction with resulting mild pharyngeal residues after the swallow. -Aspiration of moderately/honey thick liquids by tsp and thin liquids via 10cc bolus control cup. Consistent laryngeal penetration across all consistencies, a majority of which did not reliably eject from the laryngeal vestibule after the swallow. She is at increased risk for post prandial aspiration of residue remaining in the laryngeal vestibule after the swallow. Use of decreased bolus size (tsp sip) with double swallow was most effective in decreasing laryngeal penetration of nectar/mildly thick liquids during the swallow. - Recommendations Diet: Puree Textures, Reasnor-thick Liquids Compensatory Strategies: Small Bites, Liquid by Teaspoon Only - or 5cc bolus control cup, Slow Rate, Multiple Swallows - encourage double swallows with bites and sips, Sitting upright, Remain sitting upright for 30 minutes after PO intake Supervision: 1:1 Close Supervision Recommend Repeat Modified Barium Swallow: Yes - Repeat MBSS in 4-6 weeks after implementation of oropharyngeal exercise program. Need for Skilled Speech Therapy Services: Yes Comment: Will recommend the patient for skilled dysphagia therapy to address deficits in oropharyngeal swallow function. Will recommend the patient for oropharyngeal strengthening to improve lingual control, laryngeal elevation, hyoid excursion, and tongue base retraction (lingual resistance exercises, CTAR, effortful breath hold and swallow, Jaki). The patient and staff supervising the patient's meals would benefit from thorough training and education regarding diet recommendations and recommended compensatory strategies. Education Completed: 1. Described result of evaluation., 7. Pt requires further education on strategies & risks. - Status Active ST Patient: Active - Contact Information [facility] Speech Therapy:: Any Carbajal M.A. [facility]-OFFICE SUPPORT Speech-Language Pathologist [facility] [address] [place] [address] [email or web address] [phone] 04/20/22 15:12
== END | disposition home or self-care (01) ==
LOC: RAD 12:31
PROVIDERS: PCP Family Medicine; Visit Provider Family Medicine
DX: R13.12 Dysphagia, oropharyngeal phase (principal)
CPT/HCPCS: 74230; 92611

== ENCOUNTER → 2022-07-12 | Outpatient (REF) | payer MEDICARE, MEDICAID, SELFPAY ==
[2022-07-12 08:57] LABS: Hematocrit 42.5 % (37-47); Hemoglobin 13.2 g/dL (12.0-15.0); Mean Corp Hgb Conc 31.1 g/dL (32-36); Mean Corpuscular Volume 99.8 fL (81-99); Mean Platelet Vol. 10.8 fl (6.2-12.0); Platelet Count 213 K/mm3 (150-450); RBC Distribution Width CV 12.7 % (11.6-14.6); RBC Distribution Width SD 47.2 fl (35.1-43.9); Red Blood Count 4.26 M/mm3 (4.2-5.4)
[2022-07-12 09:06] LABS: Anion Gap 5 (5-15); BUN 17 mg/dL (7-18); Calcium,Total 8.9 mg/dL (8.5-10.1); Chloride 106 mmol/L (98-107); Creatinine, Serum 0.42 mg/dL (0.55-1.02); EST Glomerular Filtration Rate 156 mL/min (>60); Est Glom Filt Rate - Afr Amer 189 mL/min (>60); Glucose 110 mg/dL (74-106); Potassium 4.3 mmol/L (3.5-5.1); Sodium Level 143 mmol/L (136-145)
== END ==
LOC: OLS.WCC 04:00
PROVIDERS: PCP Family Medicine; Referring Provider Family Medicine; Visit Provider Family Medicine
DX: E86.0 Dehydration (principal); I10 Essential (primary) hypertension; Z79.899 Other long term (current) drug therapy
CPT/HCPCS: 36415; 80048; 85027

== ENCOUNTER → 2022-08-10 | Outpatient (REF) | payer MEDICARE, MEDICAID, SELFPAY ==
[2022-08-10 08:21] LABS: Hematocrit 47.6 % (37-47); Mean Corp Hgb Conc 29.4 g/dL (32-36); Mean Corpuscular Hgb 31.2 pg (27.0-32.0); Mean Platelet Vol. 10.2 fl (6.2-12.0); Platelet Count 208 K/mm3 (150-450); RBC Distribution Width CV 13.1 % (11.6-14.6); RBC Distribution Width SD 51.4 fl (35.1-43.9); Red Blood Count 4.49 M/mm3 (4.2-5.4); White Blood Count 5.9 K/mm3 (4.4-11.0)
[2022-08-10 08:32] LABS: Anion Gap 4 (5-15); BUN 16 mg/dL (7-18); BUN/Creat Ratio 19.7 RATIO (10-20); Calcium,Total 8.8 mg/dL (8.5-10.1); Chloride 106 mmol/L (98-107); Creatinine, Serum 0.81 mg/dL (0.55-1.02); EST Glomerular Filtration Rate 74 mL/min (>60); Est Glom Filt Rate - Afr Amer 89 mL/min (>60); Glucose 88 mg/dL (74-106); Sodium Level 142 mmol/L (136-145)
== END ==
LOC: OLS.WCC 05:00
PROVIDERS: PCP Family Medicine; Visit Provider Family Medicine
DX: F03.90 Unspecified dementia, unspecified severity, without behavioral disturbance, psychotic disturbance, mood disturbance, and anxiety (principal); E55.9 Vitamin D deficiency, unspecified; Z79.899 Other long term (current) drug therapy
CPT/HCPCS: 36415; 80048; 82306; 85027

== ENCOUNTER → 2022-11-01 | Outpatient (REF) | payer MEDICARE, MEDICAID, SELFPAY ==
[2022-11-01 13:34] LABS: Color, Urine Yellow (Yellow); Glucose, Dipstick Normal (Normal); Ketone-Dipstick 5 mg/dl (Negative); Leukocyte Esterase-Dipstick 25 /ul (Negative); Nitrite-Dipstick Positive (Negative); Occult Blood-Urine Negative /ul (Negative); Protein-Dipstick 30 mg/dl (Negative); Urine Bilirubin Dipstick Negative (Negative); Urine Clarity Cloudy (Clear); Urine Urobilinogen 1 mg/dl (Normal)
== END ==
LOC: OLS.WCC 11:00
PROVIDERS: PCP Family Medicine; Visit Provider Family Medicine
DX: N39.0 Urinary tract infection, site not specified (principal)
CPT/HCPCS: 81002; 87077; 87086; 87088; 87186

== ENCOUNTER → 2023-02-14 | Outpatient (REF) | payer MEDICARE, SELFPAY ==
[2023-02-14 09:09] LABS: Vitamin D,25 Hydroxy 50.5 ng/mL
[2023-02-14 09:43] LABS: Cholesterol 172 mg/dL (200); High Density Lipoprotein 61 mg/dL; Triglycerides 116 mg/dL; Very Low Density Lipoprotein 23 mg/dL (5-40)
== END ==
LOC: OLS.WCC 05:00
PROVIDERS: PCP Family Medicine; Visit Provider Family Medicine
DX: E55.9 Vitamin D deficiency, unspecified (principal); I67.9 Cerebrovascular disease, unspecified; Z79.899 Other long term (current) drug therapy
CPT/HCPCS: 36415; 80061; 82306

== ENCOUNTER → 2023-06-30 | Outpatient (REF) | payer MEDICARE, MEDICAID, SELFPAY | LOC: OLS.WCC 14:08 | PROVIDERS: PCP Family Medicine; Visit Provider Family Medicine | DX: R53.83 Other fatigue (principal); R05.9 Cough, unspecified | CPT/HCPCS: 87633 ==

== ENCOUNTER → 2023-09-19 | Outpatient (REF) | payer MEDICARE, MEDICAID, SELFPAY ==
[2023-09-19 08:36] LABS: Hematocrit 41.5 % (37-47); Hemoglobin 12.8 g/dL (12.0-15.0); Mean Corp Hgb Conc 30.8 g/dL (32-36); Mean Corpuscular Hgb 30.8 pg (27.0-32.0); Mean Corpuscular Volume 99.8 fL (81-99); Platelet Count 270 K/mm3 (150-450); RBC Distribution Width SD 47.6 fl (35.1-43.9); Red Blood Count 4.16 M/mm3 (4.2-5.4); White Blood Count 6.4 K/mm3 (4.4-11.0)
[2023-09-19 08:57] LABS: AST(SGOT) 11 U/L (15-37); Alanine Aminotransfer ALT/SGPT 19 U/L (13-56); Albumin, Serum 3.3 g/dL (3.2-5.0); Alkaline Phosphatase 74 U/L (45-117); Anion Gap 3 (5-15); BUN 14 mg/dL (7-18); BUN/Creat Ratio 22.2 RATIO (10-20); Bilirubin, Direct 0.08 mg/dL (0.00-0.30); Calcium,Total 8.8 mg/dL (8.5-10.1); Chloride 102 mmol/L (98-107); Creatinine, Serum 0.63 mg/dL (0.55-1.02); EST Glomerular Filtration Rate 99 mL/min (>60); Est Glom Filt Rate - Afr Amer 119 mL/min (>60); Globulin 3.9 g/dL (2.2-4.2); Glucose 94 mg/dL (74-106); Potassium 3.4 mmol/L (3.5-5.1); Protein, Total 7.2 g/dL (6.4-8.2); Sodium Level 137 mmol/L (136-145)
== END ==
LOC: OLS.WCC 04:00
PROVIDERS: PCP Family Medicine; Referring Provider Family Medicine; Visit Provider Family Medicine
DX: I50.9 Heart failure, unspecified (principal); Z79.899 Other long term (current) drug therapy
CPT/HCPCS: 36415; 80048; 80076; 85027